=== PATIENT | female | born 2000 | race Asian ===

== ENCOUNTER 2024-01-07 00:11 | Emergency (ER) | payer BC, MEDICAID ==
[~2024-01-07] VITALS: Ht 162.6 cm; Wt 65.8 kg
[2024-01-07] MEDS ORDERED: HYDR-3980 PO (01:14)
[2024-01-07] MEDS ORDERED: ONDA4TAB11 PO (01:14)
[2024-01-07] MEDS ORDERED: ONDANSETRON ODT 4 MG TAB.RAPDIS ONE (01:22)
[2024-01-07] MEDS ORDERED: HYDROMORPHONE 1 MG/1 ML DISP.SYRIN ONE (01:23)
[2024-01-07] MEDS: ONDANSETRON ODT 4 MG TAB.RAPDIS SL ONE (01:30)
[2024-01-07] MEDS: HYDROMORPHONE 1 MG/1 ML DISP.SYRIN IM ONE (01:30)
[2024-01-07 02:16] VITALS: BP 113/76; TEMP 98.3; O2SAT 98
== END 2024-01-07 01:40 | disposition home or self-care (01) ==
LOC: ER 00:20
DX: H60.91 Unspecified otitis externa, right ear (principal); Z98.890 Other specified postprocedural states
CPT/HCPCS: 99283; 96372; J1170; A4606; A4663; Q0162